=== PATIENT | male | born 1985 | race Caucasian/White ===

== ENCOUNTER 2024-07-10 14:59 | Emergency (ER) | payer SELFPAY ==
[2024-07-10] MEDS: Lidocaine 1% 10 ML MDV INJECT ONE (16:10)
[2024-07-10] MEDS: Acetaminophen/HYDROcodone 325-5 MG Tab PO ONE (16:10)
[2024-07-10] MEDS: Diphtheria,Pertussis(Acell),Tetanus Vaccine 0.5 ML Syringe IM ONE (16:11)
[2024-07-10 17:47] VITALS: BP 136/89; PULSE 89
== END 2024-07-10 17:47 | disposition home or self-care (01) ==
LOC: JD.ED 14:59
DX: S61.214A Laceration without foreign body of right ring finger without damage to nail, initial encounter (principal); S61.216A Laceration without foreign body of right little finger without damage to nail, initial encounter; S10.91XA Abrasion of unspecified part of neck, initial encounter; S20.311A Abrasion of right front wall of thorax, initial encounter; Z23 Encounter for immunization; W13.2XXA Fall from, out of or through roof, initial encounter
CPT/HCPCS: 12001; 90471; 90715; 99282; A9270; 99283; J3490